=== PATIENT | female | born 1975 | race Caucasian/White ===

== ENCOUNTER 2025-01-07 12:14 | Emergency (ER) | payer OTHER ==
[2025-01-07] MEDS: Orphenadrine 60 MG/2 ML Inj IM ONE (13:30)
== END 2025-01-07 14:55 | disposition home or self-care (01) ==
LOC: CC.ED 12:14
DX: S12.601A Unspecified nondisplaced fracture of seventh cervical vertebra, initial encounter for closed fracture (principal); Z79.899 Other long term (current) drug therapy; X50.1XXA Overexertion from prolonged static or awkward postures, initial encounter; Y93.89 Activity, other specified
CPT/HCPCS: 72125; 99283; J2360